=== PATIENT | female | born 1940 | race Caucasian/White ===

== ENCOUNTER 2017-10-21 06:37 | Observation (INO) | payer MEDICARE, BC ==
[~2017-10-21] VITALS: Ht 162.6 cm; Wt 61.2 kg
[2017-10-21] MEDS ORDERED: HYDR1LOT6 EX (07:17)
[2017-10-21] MEDS ORDERED: POVIDONE IODINE 5% (ANTISEPSIS KIT) 4 APPLICATIONS EACH NARE PRN (07:30)
[2017-10-21] MEDS ORDERED: CHLORHEXIDINE GLUCONATE 2 % 1 PACK (2 CLOTHS) TOPICAL PRN (07:30)
[2017-10-21] MEDS ORDERED: SODIUM CHLORID 0.9% 500 ML IV PRN (07:30)
[2017-10-21] MEDS ORDERED: LACTATED RINGER'S 1000 ML IV PRN (07:30)
[2017-10-21] MEDS ORDERED: ceFAZolin 2 GM/DEX PREMIX 50 ML IV SCH (07:30)
[2017-10-21] MEDS ORDERED: METOPROLOL TARTRATE 25 MG TAB PO PRN (07:30)
[2017-10-21 07:41] LABS: BASOPHIL % 0.4 % (0.0-2.0); EOSINOPHIL # 0.1 TH/MM3 (0-0.4); EOSINOPHIL % 1.3 % (0.0-4.0); HEMATOCRIT 41.3 % (35.0-46.0); HEMOGLOBIN 13.9 GM/DL (11.6-15.3); LYMPH % 25.4 % (9.0-44.0); LYMPHOCYTE # 2.1 TH/MM3 (1.0-4.8); MEAN CELL VOLUME 89.6 FL (80.0-100.0); MEAN CORPUSCULAR HEMOGLOBIN 30.1 PG (27.0-34.0); MEAN CORPUSCULAR HGB CONC 33.6 % (32.0-36.0); MEAN PLATELET VOLUME 7.7 FL (7.0-11.0); MONO % 11.4 % (0.0-8.0); MONOCYTE # 0.9 TH/MM3 (0-0.9); NEUT % 61.5 % (16.0-70.0); PLATELET COUNT 242 TH/MM3 (150-450); RED BLOOD COUNT 4.62 MIL/MM3 (4.00-5.30); RED CELL DISTRIBUTION WIDTH 14.7 % (11.6-17.2); WHITE BLOOD COUNT 8.2 TH/MM3 (4.0-11.0)
[2017-10-21 08:18] LABS: CALCIUM 9.2 MG/DL (8.5-10.1); CREATININE 0.6 MG/DL (0.50-1.00)
[2017-10-21] MEDS ORDERED: BUPIVACAINE/EPINEPHRINE 0.5% PF 10 ML VIAL ONE ×2 (09:56→11:07)
[2017-10-21] MEDS ORDERED: NALOXONE HCL 0.4 MG/ML AMP IV PUSH PRN (11:30)
[2017-10-21] MEDS ORDERED: diphenhydrAMINE HCL 25 MG CAP PO PRN (11:30)
[2017-10-21] MEDS ORDERED: MORPHINE SULFATE 8 MG/ML INJ IV PUSH PRN (11:30)
[2017-10-21] MEDS ORDERED: ONDANSETRON HCL 4 MG/2 ML VIAL IV PUSH PRN (11:30)
[2017-10-21] MEDS ORDERED: Post-op Orders (for Pharmacy) XX ONE (11:37)
[2017-10-21] MEDS ORDERED: *morphine SULFATE 4 MG/ML PERIprocedure ONLY ONE ×2 (11:45→12:10)
[2017-10-21] MEDS ORDERED: LIDOCAINE HCL 1% PF 5 ML SYRINGE OTHER ONE (12:00)
[2017-10-21] MEDS ORDERED: PROPOFOL 200 MG/20 ML AMP IV ONE (12:00)
[2017-10-21] MEDS ORDERED: PHENYLEPH/NS 1000 MCG/10 ML SYR IV ONE (12:00)
[2017-10-21] MEDS ORDERED: ONDANSETRON HCL 4 MG/2 ML VIAL IV ONE (12:00)
[2017-10-21] MEDS ORDERED: ROCURONIUM INJ 50 MG/5 ML SYRINGE IV PUSH ONE (12:00)
[2017-10-21] MEDS ORDERED: GLYCOPYRROLATE 1 MG/5 ML SYRINGE IV PUSH ONE (12:00)
[2017-10-21] MEDS ORDERED: NEOSTIGMINE 5 MG/5 ML SYRINGE IV PUSH ONE (12:00)
[2017-10-21] MEDS ORDERED: DEXAMETHASONE SOD PHOS 4 MG/ML VIAL IV ONE (12:00)
--- NOTE | 2017-10-21 12:02 | MP ---
cc: Andrea Brewer MD DATE OF OPERATION: DATE OF SURGERY: 10/21/2017. PREOPERATIVE DIAGNOSIS: Ventral incisional hernia, status post colostomy takedown. POSTOPERATIVE DIAGNOSIS: Ventral incisional hernia, status post colostomy takedown. PROCEDURE PERFORMED: Abdominal wall reconstruction with component separation and repair of hernia with retro-rectus mesh (polypropylene). SURGEON: Andrea Brewer MD [employer] F[employer]KE MILLER: Ankit Campo MD ANESTHESIA: General endotracheal. COMPLICATIONS: None. INDICATIONS FOR PROCEDURE: Ms. Cruz is a very pleasant 77-year-old female who developed a ventral incisional hernia. Her history is significant for undergoing a colostomy takedown down in [facility]. She had a midline hernia with palpable Prolene suture that was bothering her. The hernia contained a loop of small bowel. She was offered elective repair. Risks and benefits of repair were discussed with her and she was agreeable. DETAILS: The patient was identified, brought to the operating room, placed supine on the operating table. After adequate general endotracheal anesthesia was achieved, the abdomen was prepped and draped in standard surgical fashion. 0.25% Marcaine was injected around the patient's previous incision. The patient's previous scar was then excised. The subcutaneous tissue was dissected down to the hernia sac. Hernia sac was then opened and found to contain mostly omentum. The hernia sac was dissected circumferentially down to the level of the fascia. 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 There was a loop of small bowel stuck up to the incision and this was meticulously taken down with sharp dissection. No enterotomies were made. Once this was freed up, the fascia was cleaned off circumferentially and there were no additional adhesions. Omentum had been taken down out of the hernia sac. Brief inspection of the abdominal cavity revealed no gross abnormalities. The patient's previous hernia repair and her colostomy site in the left lower quadrant was intact with no defect. Attention was now directed to repair. First, the small bowel was placed back to its anatomic position. A piece of Seprafilm was placed over it and the omentum placed over the small bowel. A second piece of Seprafilm was then placed over the omentum. Attention was directed to the mobilization of the posterior fascia. Rectus muscle was identified on each side and dissected out. Please note, Dr. Campo did the dissection on the patient's left side and I did the dissection on the patient's right side. Once the posterior fascia was dissected circumferentially, attention was directed to closure. Closure was accomplished primarily using a #1 PDS in continuous running fashion. Once we did this, attention was directed to the mobilization of the rectus muscle out laterally in order to place the retro-rectus mesh. Again, this was done with the electrocautery Bovie. Again, Dr. Campo did the patient's left side and I did the patient's right side. Next, a 13 x 10 piece of polypropylene mesh was brought up onto the operative field. The mesh was placed into the retro-rectus position. The mesh was secured superiorly and inferiorly to the anterior fascia. The mesh was then secured circumferentially to the posterior fascia using the 2-0 PDS suture. With this, the mesh was flat under no significant tension and had generous overlap in all directions. The wound was copiously irrigated with normal saline solution. The wound was then injected with additional local anesthetic. Rectus muscles were allowed to return to their anatomic position. Next, the subcutaneous tissue was dissected off the anterior rectus muscle, anterior rectus fascia circumferentially. With this, we were able to achieve primary closure. The fascia was then closed over the mesh, again using a #1 PDS in continuous running fashion. The wound was then irrigated a second time and injected with additional local anesthetic. Subcutaneous fat was then quilted down to the abdominal wall fascia using a 3-0 Vicryl. Midline tissues were brought back together with 3-0 Vicryl and skin was closed with a 4-0 Vicryl. The patient tolerated the procedure well, was awaken and brought to recovery room in stable condition. NOTE: Please note, the assistance of Dr. Campo was medically necessary due to the complexity of the surgical procedure. He did the patient's entire left side of the dissection, mobilization and fixation of the mesh. I did the patient's entire right side. Dr. Campo was medically necessary throughout the entire procedure and was present and scrubbed throughout the entire procedure. Andrea MD JEROMY Fallon/RIOS , 11:36 AM , 12:01 PM
[2017-10-21] MEDS ORDERED: DO NOT ADM ANY ANTICOAGULANT DRUGS PRN (12:45)
[2017-10-21] MEDS: LACTATED RINGER'S 1000 ML INJ 1,000 ML IV SCH ×2 (12:48→20:12)
[2017-10-21 13:35] VITALS: BP 133/73; PULSE 63; RESP 18; TEMP 97.8; O2SAT 98
--- NOTE | 2017-10-21 14:27 | EKG ---
Date Performed: 10/21/2017 Time Performed: 07:01:41 PTAGE: 77 years EKG: Sinus rhythm NORMAL ECG Since the PREVIOUS TRACING , no significant change noted PREVIOUS TRACIN10/10/2015 06.51 DOCTOR: Kayla Bell Interpretating Date/Time 10/21/2017 14:21:06
[2017-10-21] MEDS: DOCUSATE SODIUM 100 MG CAP PO SCH (20:05)
[2017-10-21 21:00] VITALS: O2SAT 98
[2017-10-22] VITALS: BP 122/61; PULSE 78; RESP 20; TEMP 97.7; O2SAT 94
[2017-10-22] MEDS: LACTATED RINGER'S 1000 ML INJ 1,000 ML IV SCH ×2 (04:55→07:42)
[2017-10-22 08:00] VITALS: BP 164/75; PULSE 80; RESP 18; TEMP 97.9; O2SAT 94
[2017-10-22] MEDS ORDERED: IBUPROFEN 600 MG TAB PO PRN (08:45)
[2017-10-22] MEDS: ACETAMINOPHEN 325 MG TAB PO PRN ×4 (09:21→22:22)
[2017-10-22] MEDS: DOCUSATE SODIUM 100 MG CAP PO SCH ×2 (09:21→20:52)
[2017-10-22] MEDS: KETOROLAC TROMETHAMINE 30 MG/ML (IVP) VIAL IVP PRN ×2 (09:21→15:53)
[2017-10-22 12:00] VITALS: BP 133/66; PULSE 79; RESP 19; TEMP 98; O2SAT 94
[2017-10-22 16:00] VITALS: BP 137/76; PULSE 79; RESP 17; TEMP 97.6; O2SAT 97
--- NOTE | 2017-10-22 17:30 | HHI.PR ---
Subjective Subjective Notes Up to chair Does not want narcotic pain medications Objective Vitals/I&O Vital Signs Date Time Temp Pulse Resp B/P (MAP) Pulse Ox O2 Delivery O2 Flow Rate FiO2 10/22/17 16:00 97.6 79 17 137/76 (96) 97 10/21/17 21:00 21 10/21/17 13:05 Room Air 10/21/17 12:15 2 Cardiovascular: Regular Lungs: Clear Abdomen: Non-distended, Other (dressing in place c/d/i ), Post-op tenderness Extremities: No edema A/P Assessment and Plan 77 year old female POD1 Abdominal wall reconstruction with component separation and repair of hernia with retro-rectus mesh -Regular diet -Toradol available -Added Tylenol -OOB and tolerated -Added Miralax per patient's request -Likely home tomorrow if doing good Patricia Mckeon/[employer] October 22, 2017 17:30
[2017-10-22] MEDS: POLYETHYLENE GLYCOL 17 GM PKG PO SCH (17:48)
[2017-10-22 20:00] VITALS: BP 148/78; PULSE 75; RESP 20; TEMP 97.8; O2SAT 96
[2017-10-23] VITALS: BP 143/80; PULSE 72; RESP 20; TEMP 97.4; O2SAT 93
[2017-10-23] MEDS: DOCUSATE SODIUM 100 MG CAP PO SCH (07:54)
[2017-10-23] MEDS: POLYETHYLENE GLYCOL 17 GM PKG PO SCH (07:55)
[2017-10-23 08:00] VITALS: BP 125/74; PULSE 74; RESP 18; TEMP 97.9; O2SAT 91
[2017-10-23] MEDS: ACETAMINOPHEN 325 MG TAB PO PRN (08:11)
[2017-10-23 09:16] VITALS: O2SAT 92
[2017-10-23] MEDS: KETOROLAC TROMETHAMINE 30 MG/ML (IVP) VIAL IVP PRN (10:25)
--- NOTE | 2017-10-23 11:53 | HHI.PR ---
cc: Valery Escamilla MD Subjective Subjective Notes DAILY PROGRESS NOTE FOR SURGICAL ATTENDING, DR. VALERY ESCAMILLA Patient ambulating halls Had a bowel movement States she is ready to go home pain under control Objective Vitals/I&O Vital Signs Date Time Temp Pulse Resp B/P (MAP) Pulse Ox O2 Delivery O2 Flow Rate FiO2 10/23/17 09:16 92 21 10/23/17 08:00 97.9 74 18 125/74 (91) 10/21/17 13:05 Room Air 10/21/17 12:15 2 Lungs: Clear Abdomen: Post-op tenderness Wound Wound : Wound Location: Abdomen Appearance: Clean & Dry Dressing: Dry (Abdominal binder in place) A/P Problem List: (1) Postoperative incisional hernia ICD Codes: K43.2 - Incisional hernia without obstruction or gangrene Status: Acute Assessment and Plan 77-year-old female who underwent abdominal reconstruction She had some problems with constipation which has resolved. Patient ready to go home she has a follow-up appointment with Dr. Brewer Attending Statement NOTE FOR SURGICAL ATTENDING, DR. VALERY ESCAMILLA I attest that I had a [id number] encounter with the patient on the same day, and personally performed and documented my assessment and findings in the medical record. The following services were provided during this hospital visit: Chart data review, vital sign assessments/reviewing monitor data Review of consultations notes if present. Medication orders/review and/or management Ordering and/or reviewing lab tests Ordering and/or interpreting/reviewing x-rays and/or diagnostic studies Care of the patient and discussion of the patient with the care team Documentation time To help prompt me to consider important information that might be impacting today's encounter and assessment, Information from prior notes written by myself or my colleagues may have been "brought forward/copy and pasted" into today's note. Valery Escamilla MD October 23, 2017 11:53
--- NOTE | 2017-10-26 10:15 | HHI.DS ---
Discharge Summary Admission Date October 21, 2017 at 11:31 Discharge Date: October 23, 2017 Admitting Diagnosis (1) Postoperative incisional hernia ICD Codes: K43.2 - Incisional hernia without obstruction or gangrene Status: Acute Brief History 77 year old female s/p Abdominal wall reconstruction with component separation and repair of hernia with retro-rectus mesh PE at Discharge Alert and awake Cardio: RRR Resp: CTAB Abd: incision c/d/i; binder in place Ext: no edema Hospital Course This is a 77 year old female s/p Abdominal wall reconstruction with component separation and repair of hernia with retro-rectus mesh. The patient was able to tolerate a regular diet. The patient's pain was controlled using oral pain medication. The patient will follow up on October [address] Brewer. Pt Condition on Discharge: Good Discharge Disposition: Discharge Home Discharge Instructions DIET: Follow Instructions for: As Tolerated, No Restrictions Activities you can perform: See Additionl Instruction Patricia Mckeon/Director Electrical Engineering LUCIANO October 26, 2017 10:15
== END 2017-10-23 12:25 | disposition home or self-care (01) ==
LOC: HSDC 06:37 → HSDI 11:31 → N07B 13:28
PROVIDERS: ADMIT Surgery Trauma Surgery; ATTEND Surgery Trauma Surgery
DX: K43.2 Incisional hernia without obstruction or gangrene (principal); J44.9 Chronic obstructive pulmonary disease, unspecified; Z93.3 Colostomy status; Z01.810 Encounter for preprocedural cardiovascular examination
CPT/HCPCS: 00832; 49565; 49568; 80048; 85025; 93005; 94150; 96374; 96376; C1765; C1781; G0378; J1100; J1885; J2270; J2370; J2405; J2710; J3010; J7120